=== PATIENT | female | born 1955 | race Caucasian/White ===

== ENCOUNTER 2024-08-20 21:59 | Emergency (ER) | payer MEDICARE ==
[~2024-08-20] VITALS: Ht 172.7 cm; Wt 93.5 kg
[~2024-08-20 21:59] MED LIST: ASPIR-TRIN325 MG PO; GABAPENTIN300 M1 PO; GLIPIZIDE10 MG PO; HYDROCODONE BIT1 T11 PO; LEVEMIR; MACROBID100 M1 PO; METFORMIN1000 MG PO; Motrin,Rufen800 MG PO; NEURONTIN300 MG PO; PRAVASTATIN SOD10 MG PO; PRENATAL1 TA7 PO; PYRIDIUM200 M1 PO; VICODIN 5/500 505 MG PO; ZESTORETIC 25 M1 TA4 PO; ZOFRAN ODT4 MG SL; ZOVIRAX800 MG PO
[2024-08-20] MEDS ORDERED: Ondansetron Hydrochloride 4 MG/2 ML VIAL IV ONE (22:10)
[2024-08-20] MEDS ORDERED: SODIUM CHLORIDE 0.9% 1,000 ML IV ONE ×2 (22:10→23:25)
[2024-08-20 22:48] LABS: BASO % 0.5 % (0.0-1.0); EOS # 0.1 10*3/uL (0.0-0.4); EOS % 1.6 % (1.0-4.0); HEMATOCRIT 42.6 % (37.0-47.0); MEAN CELL VOLUME 92.4 fl (81.0-99.0); MEAN CORPUSCULAR HGB 27.5 pg (27.0-31.0); MEAN CORPUSCULAR HGB CONC 29.8 g/dl (33.0-37.0); MEAN PLATELET VOLUME 9.4 fl (9.6-12.3); MONO # 0.2 10*3/uL (0.1-1.0); MONO % 3.4 % (3.0-9.0); NEUT # 1.9 10*3/uL (2.3-7.9); NEUT % 43.9 % (47.0-73.0); PLATELET COUNT AUTOMATED 165 10*3/uL (130-400); RED BLOOD COUNT 4.61 10*6/uL (4.10-5.10); RED CELL DISTRI WIDTH 19.3 % (0-14.5); WHITE BLOOD COUNT 4.4 10*3/uL (4.8-10.8)
[2024-08-20 23:08] LABS: POTASSIUM 4.7 mmol/L (3.4-5.1)
[2024-08-21] MEDS ORDERED: SODIUM CHLORIDE 0.9% 1,000 ML IV ONE ×2 (00:45→03:10)
[2024-08-21] MEDS ORDERED: Promethazine Hydrochloride 25 MG/ML VIAL IM ONE (00:50)
[2024-08-21] MEDS ORDERED: cefTRIAXone Sodium 1 GM/10 ML SYR IV ONE (01:45)
[2024-08-21] MEDS ORDERED: PREGABALIN75 MG PO (01:50)
[2024-08-21] MEDS ORDERED: NOREPINEPHRINE BITARTRATE/D5W 250 ML IV SCH (01:50)
[2024-08-21] MEDS ORDERED: AZITHROMYCIN 250 ML IV ONE (01:50)
[2024-08-21] MEDS ORDERED: TIZANIDINE HCL4 MG PO (01:50)
[2024-08-21] MEDS ORDERED: MAGNEBIND 4001 EAC1 PO (01:50)
[2024-08-21] MEDS ORDERED: PANTOPRAZOLE SO40 MG PO (01:50)
[2024-08-21] MEDS ORDERED: LISINOPRIL20 MG PO (01:51)
[2024-08-21] MEDS ORDERED: TRESIBA FL200 UNIT/1 SC (01:52)
[2024-08-21] MEDS ORDERED: Ondansetron Hydrochloride 4 MG/2 ML VIAL IV ONE (03:00)
[2024-08-21] MEDS ORDERED: metroNIDAZOLE 100 ML IV ONE (05:00)
[2024-08-21 06:13] VITALS: BP 84/43
== END 2024-08-21 06:50 | disposition short-term general hospital (02) ==
LOC: ED 21:59
PROVIDERS: Internal Medicine
DX: J69.0 Pneumonitis due to inhalation of food and vomit (principal); E11.22 Type 2 diabetes mellitus with diabetic chronic kidney disease; I12.9 Hypertensive chronic kidney disease with stage 1 through stage 4 chronic kidney disease, or unspecified chronic kidney disease; R65.21 Severe sepsis with septic shock; N18.32 Chronic kidney disease, stage 3b; K80.20 Calculus of gallbladder without cholecystitis without obstruction; R74.8 Abnormal levels of other serum enzymes; R79.89 Other specified abnormal findings of blood chemistry; E87.20 Acidosis, unspecified; E43 Unspecified severe protein-calorie malnutrition; Z68.1 Body mass index [BMI] 19.9 or less, adult; R11.2 Nausea with vomiting, unspecified; R10.11 Right upper quadrant pain; Z98.890 Other specified postprocedural states; Z88.2 Allergy status to sulfonamides; Z88.8 Allergy status to other drugs, medicaments and biological substances